=== PATIENT | female | born 1975 | race Two or more races ===

== ENCOUNTER 2023-12-05 10:13 | Emergency (ER) | payer SELFPAY ==
[~2023-12-05] VITALS: Ht 165.1 cm; Wt 54.5 kg
[2023-12-05 10:14] VITALS: TEMP 98
[2023-12-05] MEDS ORDERED: PRED-549 PO (10:15)
[2023-12-05] MEDS: LIDOCAINE 1% 10 ML VIAL SQ ONE (10:48)
[2023-12-05 11:15] VITALS: BP 144/77; PULSE 88; RESP 18
[2023-12-05] MEDS: PERTUSS(ACELL),DIPH,TET VAC/PF 0.5 ML SYRINGE IM. ONE (11:24)
[2023-12-05] MEDS: BACITRACIN 0.9 GM PACKET OINTMENT TP ONE (11:41)
== END 2023-12-05 11:49 | disposition home or self-care (01) ==
LOC: EMS 10:13
DX: S91.311A Laceration without foreign body, right foot, initial encounter (principal); G43.909 Migraine, unspecified, not intractable, without status migrainosus; X58.XXXA Exposure to other specified factors, initial encounter; Y93.89 Activity, other specified; Y92.89 Other specified places as the place of occurrence of the external cause; Y99.8 Other external cause status
CPT/HCPCS: 99283; 90715; 90471; 12001; J3490

== ENCOUNTER → 2023-12-12 | Emergency (ER) | payer SELFPAY ==
[~2023-12-12] VITALS: Ht 167.6 cm; Wt 72.7 kg
[~2023-12-12] MED LIST: PRED-549 PO
[2023-12-12 09:58] VITALS: BP 135/73; PULSE 87; RESP 16; TEMP 98.2
== END | disposition still patient (30) ==
LOC: EMS 09:43
DX: S91.311D Laceration without foreign body, right foot, subsequent encounter (principal); G43.909 Migraine, unspecified, not intractable, without status migrainosus; Z90.49 Acquired absence of other specified parts of digestive tract; Z90.710 Acquired absence of both cervix and uterus; Z48.02 Encounter for removal of sutures; X58.XXXD Exposure to other specified factors, subsequent encounter
CPT/HCPCS: 99281; Z7502

== ENCOUNTER 2024-08-06 12:09 | Emergency (ER) | payer OTHER ==
[~2024-08-06] VITALS: Ht 165.1 cm; Wt 72.6 kg
[2024-08-06 12:23] VITALS: BP 126/77; PULSE 68; RESP 16; TEMP 97.8; O2SAT 100
[2024-08-06] MEDS ORDERED: CYCL-448 PO (12:58)
[2024-08-06] MEDS ORDERED: IBUP-1492 PO (12:58)
[2024-08-06] MEDS: IBUPROFEN 600 MG TABLET PO ONE (13:04)
== END 2024-08-06 13:12 | disposition home or self-care (01) ==
LOC: EMS 12:09
DX: M54.50 Low back pain, unspecified (principal); M79.639 Pain in unspecified forearm; M54.2 Cervicalgia; G43.909 Migraine, unspecified, not intractable, without status migrainosus; Z90.710 Acquired absence of both cervix and uterus; Z90.49 Acquired absence of other specified parts of digestive tract; Z88.2 Allergy status to sulfonamides; V43.52XA Car driver injured in collision with other type car in traffic accident, initial encounter; Y92.410 Unspecified street and highway as the place of occurrence of the external cause
CPT/HCPCS: 99283

== ENCOUNTER → 2025-07-10 | Outpatient (CLI) | payer OTHER ==
[~2025-07-10] MED LIST changes: +CYCL-448 PO; +IBUP-1492 PO
[2025-07-10 11:56] LABS: APPEARANCE,URINE CLEAR (CLEAR); GLUCOSE, URINE (UA) NEGATIVE (NEGATIVE); LEUKOCYTE ESTERASE ,URINE NEGATIVE (NEGATIVE); NITRATE,URINE NEGATIVE (NEGATIVE); OCCULT BLOOD,URINE NEGATIVE (NEGATIVE); PLATELET COUNT (AUTO) 345 K/uL (150-450); RED BLOOD CELL COUNT(AUTO) 5.24 MIL/uL (4.00-5.20); RED CELL DISTRIBUTION WIDTH 13.9 % (11.5-14.5); SPECIFIC GRAVITIY, URINE 1.023 (1.003-1.030); WHITE BLOOD COUNT (AUTO) 6.8 K/uL (4.5-11.0)
[2025-07-10 12:14] LABS: ASPARTATE AMINOTRANSFERASE 20 U/L (15-37); CALCIUM, TOTAL 9.4 mg/dL (8.8-10.5); CHOL/HDL RATIO 3.6 (3.9-5.7); CREATININE 0.80 mg/dL (0.60-1.30); GLOMERULAR FILTR. RATE CALC > 60 mL/min (>60); GLUCOSE,RANDOM 98 mg/dL (70-110); LDL CHOL (CALC.) 146 mg/dL (0-130); SODIUM SERUM 139 mmol/L (136-145); TOTAL PROTEIN, SERUM 7.7 g/dL (6.4-8.2); UREA NITROGEN, BLOOD 18 mg/dL (7-18)
== END | disposition home or self-care (01) ==
LOC: LABMN 11:16
PROVIDERS: ATTEND Family Medicine Sports Medicine
DX: E66.3 Overweight (principal); Z00.00 Encounter for general adult medical examination without abnormal findings; Z68.28 Body mass index [BMI] 28.0-28.9, adult
CPT/HCPCS: 80053; 80061; 81003; 83036; 84443; 85025